=== PATIENT | male | born 1945 | race Caucasian/White ===

== ENCOUNTER 2017-08-04 11:39 | Inpatient (IN) | payer OTHER ==
[~2017-08-04] VITALS: Ht 167.6 cm; Wt 90.4 kg
[~2017-08-04 11:39] MED LIST: 8 HOUR PAIN RE650 MG PO; ASPI81CH PO; Aspir 8181 MG PO; BENAML20/5; BENAML20/5 PO; CALPHO600; CENTRUM SILVER1 EAC2 PO; CEPH500; CETI5 PO; CHOL10002 PO; CYAN1000 PO; CYCL10; FISH1000 PO; FURO40 PO; HYDACE5; MAGOXI400 PO; MULVITMINF; Multiple Vitam1 EAC1 PO; OXAP600; TELM40; TRAM50 PO; TYLOX
[2017-08-04] MEDS ORDERED: LISI5 PO (12:42)
[2017-08-04] MEDS ORDERED: QVAR (12:43)
[2017-08-04] MEDS ORDERED: HYDRA25 PO (12:44)
[2017-08-04] MEDS ORDERED: Coreg12.5 MG PO (12:44)
[2017-08-04 12:49] LABS: BASOPHILS ABSOLUTE AUTO 0.05 K/mm3 (0.00-0.23); BASOPHILS PERCENT AUTO 1 % (0-2); EOSINOPHILS ABSOLUTE AUTO 0.38 K/mm3 (0.00-0.68); EOSINOPHILS PERCENT AUTO 4 % (0-6); Hematocrit 40.3 % (37.0-53.0); Hemoglobin 13.1 g/dL (13.5-17.5); IMMATURE GRAN ABSOLUTE AUTO 0.03 K/mm3 (0.00-0.10); IMMATURE GRAN PERCENT AUTO 0 % (0-1); LYMPHOCYTES ABSOLUTE AUTO 2.99 K/mm3 (0.84-5.20); LYMPHOCYTES PERCENT AUTO 33 % (21-46); MONOCYTES ABSOLUTE AUTO 0.84 K/mm3 (0.16-1.47); MONOCYTES PERCENT AUTO 9 % (4-13); Mean Corpuscular HGB Conc 32.5 g/dL (31.5-36.5); Mean Corpuscular Volume 98 fL (80-100); Mean Platelet Volume 10.1 fL (9.1-12.4); NEUTROPHILS ABSOLUTE AUTO 4.86 K/mm3 (1.96-9.15); NEUTROPHILS PERCENT AUTO 53 % (41-73); Platelet Count 258 K/mm3 (150-400); RDW Coefficient Variation 14.2 % (11.7-14.2); RDW Standard Deviation 50.9 fL (35.1-46.3); White Blood Cell Count 9.15 K/mm3 (4.00-11.30)
[2017-08-04] MEDS ORDERED: ASPI81CH PO ×2 (13:00→13:15)
[2017-08-04 13:03] LABS: Alanine Aminotransfer (ALT/SGP 24 U/L (12-78); Albumin, Blood 3.6 g/dL (3.4-5.0); Alk Phos 92 U/L (50-136); Anion Gap 4 mmol/L (6-16); Aspartate Aminotrans (AST/SGOT 19 U/L (12-37); Bilirubin, Total 0.3 mg/dL (0.1-1.0); Blood Urea Nitrogen 28 mg/dL (8-24); Bun/Creatinine Ratio 31.5 (12.0-20.0); CO2, Blood 31 mmol/L (21-32); Calcium, Blood 9.4 mg/dL (8.5-10.1); Chloride, Blood 102 mmol/L (98-108); Creatinine, Blood 0.89 mg/dL (0.60-1.20); Globulin, Blood 3.6 g/dL (2.2-4.0); Glomerular Filtration Rate >60 (60-); Glucose, Blood 96 mg/dL (70-99); Potassium, Blood 4.4 mmol/L (3.5-5.5); Sodium, Blood 137 mmol/L (136-145); Total Protein, Blood 7.2 g/dL (6.4-8.2); Troponin I 0.204 ng/mL (0.000-0.040)
[2017-08-05 03:05] LABS: Alanine Aminotransfer (ALT/SGP 24 U/L (12-78); Albumin, Blood 3.5 g/dL (3.4-5.0); Albumin/Globulin Ratio 0.9 (0.8-1.8); Alk Phos 93 U/L (50-136); Anion Gap 4 mmol/L (6-16); Aspartate Aminotrans (AST/SGOT 17 U/L (12-37); Bilirubin, Total 0.3 mg/dL (0.1-1.0); Blood Urea Nitrogen 30 mg/dL (8-24); Bun/Creatinine Ratio 29.1 (12.0-20.0); CHOL/HDL RATIO 3.1; CO2, Blood 33 mmol/L (21-32); Calcium, Blood 9.1 mg/dL (8.5-10.1); Chloride, Blood 103 mmol/L (98-108); Cholesterol 157 mg/dL (50-200); Creatinine, Blood 1.03 mg/dL (0.60-1.20); Globulin, Blood 3.8 g/dL (2.2-4.0); Glomerular Filtration Rate >60 (60-); Glucose, Blood 120 mg/dL (70-99); HDL Cholesterol 50 mg/dL (>39); LDL/HDL RATIO 1.5; Low Density Lipoprotein Chol 76 mg/dL (0-110); Sodium, Blood 140 mmol/L (136-145); Total Protein, Blood 7.3 g/dL (6.4-8.2); Triglycerides 155 mg/dL (30-160); Very Low Density Lipoprot Chol 31 mg/dL (6-32)
[2017-08-06] MEDS ORDERED: ASPI325 PO (16:31)
[2017-08-06] MEDS ORDERED: CLOP75 PO (16:32)
[2017-08-06] MEDS ORDERED: NITR.4SL SL (16:33)
== END 2017-08-06 16:45 | disposition home or self-care (01) | DRG 247 ==
LOC: ER 11:39 → MEDS 11:40 → ER 13:52 → MEDS 13:52 → ER 18:44 → MEDS 18:44
PROVIDERS: Emergency Medicine; Family Medicine
PROC: 027034Z Dilation of Coronary Artery, One Artery with Drug-eluting Intraluminal Device, Percutaneous Approach (ICD-10-PCS; principal; 2017-08-06)
PROC: 4A023N7 Measurement of Cardiac Sampling and Pressure, Left Heart, Percutaneous Approach (ICD-10-PCS; 2017-08-06)
PROC: B2111ZZ Fluoroscopy of Multiple Coronary Arteries using Low Osmolar Contrast (ICD-10-PCS; 2017-08-06)
PROC: B2151ZZ Fluoroscopy of Left Heart using Low Osmolar Contrast (ICD-10-PCS; 2017-08-06)
DX: I25.110 Atherosclerotic heart disease of native coronary artery with unstable angina pectoris (principal); I11.0 Hypertensive heart disease with heart failure; J44.9 Chronic obstructive pulmonary disease, unspecified; I50.9 Heart failure, unspecified; Z87.891 Personal history of nicotine dependence; Z85.46 Personal history of malignant neoplasm of prostate; I25.2 Old myocardial infarction; Z86.718 Personal history of other venous thrombosis and embolism; Z79.02 Long term (current) use of antithrombotics/antiplatelets
CPT/HCPCS: 36415; 80053; 80061; 84484; 85025; 85347; 92978; 93005; 93010; 93454; 94640; 94760; 99152; 99153; 99284; 99285; C1725; C1753; C1769; C1874; C1894; C9600; G0378; J1644; J2250; J2405; J3010; J7030; Q9967

== ENCOUNTER 2020-04-09 13:34 | Emergency (ER) | payer OTHER ==
[~2020-04-09] VITALS: Ht 165.1 cm; Wt 99.8 kg
[~2020-04-09 13:34] MED LIST changes: +ASPI325 PO; +CLOP75 PO; +Coreg12.5 MG PO; +HYDRA25 PO; +LISI5 PO; +NITR.4SL SL; +QVAR
[2020-04-09 14:22] LABS: BASOPHILS ABSOLUTE AUTO 0.04 K/mm3 (0.00-0.23); BASOPHILS PERCENT AUTO 0 % (0-2); EOSINOPHILS ABSOLUTE AUTO 0.15 K/mm3 (0.00-0.68); EOSINOPHILS PERCENT AUTO 2 % (0-6); Hematocrit 36.2 % (37.0-53.0); IMMATURE GRAN ABSOLUTE AUTO 0.07 K/mm3 (0.00-0.10); IMMATURE GRAN PERCENT AUTO 1 % (0-1); LYMPHOCYTES ABSOLUTE AUTO 1.17 K/mm3 (0.84-5.20); LYMPHOCYTES PERCENT AUTO 12 % (21-46); MONOCYTES ABSOLUTE AUTO 0.78 K/mm3 (0.16-1.47); MONOCYTES PERCENT AUTO 8 % (4-13); Mean Corpuscular HGB 30.1 pg (26.0-34.0); Mean Corpuscular HGB Conc 30.4 g/dL (31.5-36.5); Mean Corpuscular Volume 99 fL (80-100); Mean Platelet Volume 10.1 fL (9.1-12.4); NEUTROPHILS PERCENT AUTO 77 % (41-73); Platelet Count 181 K/mm3 (150-400); RDW Coefficient Variation 14.8 % (11.7-14.2); RDW Standard Deviation 54.5 fL (35.1-46.3); Red Blood Cell Count 3.65 M/mm3 (4.30-5.90); White Blood Cell Count 9.51 K/mm3 (4.00-11.30)
[2020-04-09 14:40] LABS: Albumin, Blood 3.3 g/dL (3.4-5.0); Albumin/Globulin Ratio 0.9 (0.8-1.8); Bilirubin, Total 0.5 mg/dL (0.1-1.0); Bun/Creatinine Ratio 23.6 (12.0-20.0); Calcium, Blood 9.2 mg/dL (8.5-10.1); Creatinine, Blood 1.57 mg/dL (0.60-1.20); Globulin, Blood 3.7 g/dL (2.2-4.0); Potassium, Blood 4.8 mmol/L (3.5-5.5); Troponin I 0.063 ng/mL (0.000-0.040)
[2020-04-09] MEDS ORDERED: PANT40 PO (15:26)
[2020-04-09] MEDS ORDERED: ESCI10 PO (15:26)
[2020-04-09] MEDS ORDERED: ANORO ELLIPTA1 EAC1 INH (15:27)
[2020-04-09] MEDS ORDERED: XARELTO20 MG PO (15:28)
[2020-04-09] MEDS ORDERED: ALBU3IS INH (15:29)
[2020-04-09] MEDS ORDERED: Klor-Con 1010 MEQ PO (15:32)
[2020-04-09] MEDS ORDERED: FURO40 PO (15:32)
[2020-04-09] MEDS ORDERED: ATROVENT HFA12.9 GM INH (15:34)
== END 2020-04-09 17:17 | disposition home or self-care (01) ==
LOC: ER 13:34
PROVIDERS: Physician Assistant
DX: I26.99 Other pulmonary embolism without acute cor pulmonale (principal); I82.403 Acute embolism and thrombosis of unspecified deep veins of lower extremity, bilateral; C61 Malignant neoplasm of prostate; D72.819 Decreased white blood cell count, unspecified; I25.2 Old myocardial infarction; I25.10 Atherosclerotic heart disease of native coronary artery without angina pectoris; I11.0 Hypertensive heart disease with heart failure; I50.9 Heart failure, unspecified; J44.9 Chronic obstructive pulmonary disease, unspecified; Z79.01 Long term (current) use of anticoagulants; Z88.5 Allergy status to narcotic agent; Z88.8 Allergy status to other drugs, medicaments and biological substances; Z79.899 Other long term (current) drug therapy; Z79.82 Long term (current) use of aspirin
CPT/HCPCS: 36415; 71046; 71260; 80053; 84484; 85025; 93005; 93010; 96360; 99285-25; J7030; Q9967

== ENCOUNTER 2020-11-08 19:46 | Inpatient (IN) | payer OTHER ==
[~2020-11-08] VITALS: Ht 170.2 cm; Wt 107.8 kg
[~2020-11-08 19:46] MED LIST changes: +ALBU3IS INH; +ANORO ELLIPTA1 EAC1 INH; +ATROVENT HFA12.9 GM INH; +ESCI10 PO; +Klor-Con 1010 MEQ PO; +PANT40 PO; +XARELTO20 MG PO
[2020-11-08 20:15] LABS: BASOPHILS ABSOLUTE AUTO 0.03 K/mm3 (0.00-0.23); BASOPHILS PERCENT AUTO 0 % (0-2); EOSINOPHILS ABSOLUTE AUTO 0.04 K/mm3 (0.00-0.68); EOSINOPHILS PERCENT AUTO 1 % (0-6); Hematocrit 31.2 % (37.0-53.0); Hemoglobin 9.4 g/dL (13.5-17.5); IMMATURE GRAN ABSOLUTE AUTO 0.02 K/mm3 (0.00-0.10); IMMATURE GRAN PERCENT AUTO 0 % (0-1); LYMPHOCYTES ABSOLUTE AUTO 1.65 K/mm3 (0.84-5.20); LYMPHOCYTES PERCENT AUTO 23 % (21-46); MONOCYTES ABSOLUTE AUTO 0.82 K/mm3 (0.16-1.47); MONOCYTES PERCENT AUTO 11 % (4-13); Mean Corpuscular HGB Conc 30.1 g/dL (31.5-36.5); Mean Corpuscular Volume 103 fL (80-100); Mean Platelet Volume 9.5 fL (9.1-12.4); NEUTROPHILS ABSOLUTE AUTO 4.62 K/mm3 (1.96-9.15); NEUTROPHILS PERCENT AUTO 64 % (41-73); Platelet Count 216 K/mm3 (150-400); RDW Coefficient Variation 14.5 % (11.7-14.2); RDW Standard Deviation 53.9 fL (35.1-46.3); Red Blood Cell Count 3.03 M/mm3 (4.30-5.90); White Blood Cell Count 7.18 K/mm3 (4.00-11.30)
[2020-11-08] MEDS ORDERED: FAMO40 PO (20:23)
[2020-11-08] MEDS ORDERED: ENTRESTO 49 MG1 EACH PO (20:25)
[2020-11-08] MEDS ORDERED: XARELTO20 MG PO (20:25)
[2020-11-08] MEDS ORDERED: ONDA4ODT MM (20:27)
[2020-11-08 20:35] LABS: Albumin, Blood 3.1 g/dL (3.4-5.0); Albumin/Globulin Ratio 0.8 (0.8-1.8); Bilirubin, Total 0.2 mg/dL (0.1-1.0); Bun/Creatinine Ratio 25.3 (12.0-20.0); Calcium, Blood 9.2 mg/dL (8.5-10.1); Creatinine, Blood 1.78 mg/dL (0.60-1.20); Potassium, Blood 4.8 mmol/L (3.5-5.5); Total Protein, Blood 7.1 g/dL (6.4-8.2); Troponin I 0.092 ng/mL (0.000-0.040)
[2020-11-08] MEDS ORDERED: ENTRESTO 49 MG1 EAC2 PO (20:40)
[2020-11-08 23:17] LABS: International Normalized Ratio 1.32
--- NOTE | 2020-11-09 03:00 | NUR ---
PT ADMITTED TO ICU FOR HYPOTENSION, POSS NSTEMI. PT IS ALERT, ANSWERS QUESTIONS APPROPRIATELY, DEFERS TO FOR DETAILS, WHO IS PRESENT AND HELPED W ADMIT ASSESSMENT. PT CONT W HR 40'S, SINUS RHYTHM, NO ECTOPY. PT BP CONT LOW 80'S. HEPARIN INFUSING. PER DR WEBB ADMIT NOTE, UNABLE TO DIURESE D/T HYPOTENSION, PT REC'D 2L IN ER. WILL CONFIRM TO CONTINUE IVF. CALL LIGHT IN REACH. PHONE NUMBERS PROVIDED TO .
[2020-11-09 04:01] LABS: Bun/Creatinine Ratio 26.2 (12.0-20.0); Calcium, Blood 8.6 mg/dL (8.5-10.1); Creatinine, Blood 1.91 mg/dL (0.60-1.20); Potassium, Blood 5.5 mmol/L (3.5-5.5)
--- NOTE | 2020-11-09 06:30 | NUR ---
PT HAS APPEARED RESTFUL THROUGH THE NOC, CONT IN HIGH FOWLERS POSTION, AND LOOSENS OXYMIZER AROUND HIS NECK- "FEELS TOO TIGHT". CONT TO DENY SOB OR CHEST DISCOMFORT OR NAUSEA. HR CONT 40'S, SBP SLOWLY UP TO 90. SPOKE W DR WEBB RE IVF, HE WOULD LIKE THEM STARTED. PT ANXIOUS TO MEET W CARDIOLOGY. PT RELATES THAT ENTRESTO DOSE WAS DOUBLED RECENTLY. CALL LIGHT CONT IN REACH.
[2020-11-09 09:35] LABS: CHOL/HDL RATIO 2.7; Cholesterol 125 mg/dL (50-200); HDL Cholesterol 47 mg/dL (>39); LDL/HDL RATIO 1.3; Low Density Lipoprotein Chol 63 mg/dL (0-110); Triglycerides 76 mg/dL (30-160); Uric Acid, Blood 7.6 mg/dL (3.5-7.2); Very Low Density Lipoprot Chol 15 mg/dL (6-32)
--- NOTE | 2020-11-09 10:00 | NUR ---
Assumed care of pt at 0700 with Regi GUILLERMO. Pt A&O x 4. Pleasant and cooperative with care. Answers questions. Follows commands. Verbalizes needs. Pt denies chest pain, light headedness, dizziness. When asked if he is feeling short of breath, he states "yes". When asked if this shortness of breath is worse than usual, he states "no". Pt asked to sit up in recliner. Educated that this is not a safe option until HR and BP improved. Pt agreeable. Asked pt if he sleeps in a recliner at home, pt states "yes". SBP 80s, 90s. Sometimes difficult to obtain due to irregular heart rhythm. Additionally, he is tremulous, which he states is new. BP confirmed with doppler, SBP 90s. Pt's HR is 45-55 at rest. Asked pt if he knows what his pulse normally is, he states "I don't know". When sure that BP was stable, pt assisted to stand and void in urinal. Dr Lopez ordered bladder scan, which revealed approx 300 mL. Pt able to void 175 mL. Assisted to sit in recliner afterwards. Pt weak, but tolerated activity well. Pt's spouse is concerned about pt and wants to visit now, despite visiting hours. Spouse updated by hospitalist, Dr Lopez. Plan to update family as new results are obtained. Update given by this RN, to pt's daughter who called unit. She states she reviewed pt's labs on patient portal and has questions on them. Discussed elevated troponin, that pt is receiving heparin, and that plan is for pt to obtain echocardiogram and cardiology will be consulting on pt. Dr Dailey in to see pt. Echocardiogram has not yet been obtained. Plan to reassess pt when echo is done and maintain NPO status in the mean time. Discussed pt's HR at rest and with activity (increases to 70s-90s). Provider reviews rhythm strips and states pt may be in 2:1 block. Will continue to closely reassess.
[2020-11-09 12:50] LABS: Bun/Creatinine Ratio 26.8 (12.0-20.0); Calcium, Blood 8.5 mg/dL (8.5-10.1); Creatinine, Blood 1.79 mg/dL (0.60-1.20); Potassium, Blood 5.3 mmol/L (3.5-5.5)
--- NOTE | 2020-11-09 15:30 | NUR ---
Call placed to Dr Lopez regarding pt's blood pressure. Low per automatic NIBP machine. Unable to hear manual BP with stethoscope. SBP 90 per doppler. Order given for 500 mL bolus. If this is not effective, plan for dopamine drip.
--- NOTE | 2020-11-09 16:00 | NUR ---
Pt's BP responded well to fluid bolus. Will continue to reassess.
--- NOTE | 2020-11-09 17:34 | NUR ---
SUMMARY Pt has been up in recliner for majority of shift. Pt A&O x 2. Answers questions. Follows commands. Verbalizes needs. Pleasant and cooperative with care. Since fluid bolus, pt's HR has been averaging 70s-80s at rest, but still occasionally drops down to 50s. BP stable with MAP greater than 60. Pt has not had any chest pain, light headedness, dizziness, or unusual shortness of breath this shift. Pt currently on 6 LPM NC to maintain SpO2 90% or greater. Pt visiting with spouse. Will continue to closely monitor until care handoff and bedside report with oncoming RN.
--- NOTE | 2020-11-09 19:15 | NUR ---
ASSUMED CARE AT 1900 PT SITTING UP IN CHAIR WATCHING TV. PT IS ALERT/ORIENTED X4 BUT SLOW TO RESPOND AND LETHARGIC; PT KEEPS HIS EYES CLOSED WHILE TALKING. SEE NEXT NOTE ABOUT INCREASE IN O2 DEMANDS. AFEBRILE. HR 90'S. SBP 90-100, MAP >65. HEPARIN INFUSING AT 11 UNITS/KG/HR. PLAN FOR PT TO BE NPO AFTER MIDNIGHT. PT ABLE TO USE BSC WITH ONE PERSON ASSIST. PT CALLED FOR UPDATE, PHONE CALL WAS THAN TRANSFERED TO AND PT TALKED TO . SEE SHIFT ASSESSMENT FOR FULL ASSESSMENT.
[2020-11-09 19:37] LABS: Influenza A, PCR NEGATIVE (NEGATIVE); Influenza B, PCR NEGATIVE (NEGATIVE); Resp Syncytial Virus, PCR NEGATIVE (NEGATIVE); SARS-Cov-2 (COVID-19) PCR, MMC NEGATIVE (NEGATIVE)
--- NOTE | 2020-11-09 20:34 | NUR ---
CALLED DR CLEANING PT INCREASE IN O2 REQUIREMENTS, NOW ON 12L HIGH FLOW NC, AUSCULTATION OF LUNGS CRACKLES T/O. NEW INSTRUCTION TO HOLD NS INFUSING AT 150ML/HR, AND TO PROVIDED CPAP IN NEEDED.
[2020-11-10 03:28] LABS: BASOPHILS ABSOLUTE AUTO 0.05 K/mm3 (0.00-0.23); BASOPHILS PERCENT AUTO 1 % (0-2); EOSINOPHILS ABSOLUTE AUTO 0.05 K/mm3 (0.00-0.68); EOSINOPHILS PERCENT AUTO 1 % (0-6); Hematocrit 29.3 % (37.0-53.0); Hemoglobin 8.7 g/dL (13.5-17.5); IMMATURE GRAN ABSOLUTE AUTO 0.08 K/mm3 (0.00-0.10); IMMATURE GRAN PERCENT AUTO 1 % (0-1); LYMPHOCYTES ABSOLUTE AUTO 1.95 K/mm3 (0.84-5.20); LYMPHOCYTES PERCENT AUTO 25 % (21-46); MONOCYTES ABSOLUTE AUTO 0.88 K/mm3 (0.16-1.47); MONOCYTES PERCENT AUTO 11 % (4-13); Mean Corpuscular HGB 30.7 pg (26.0-34.0); Mean Corpuscular HGB Conc 29.7 g/dL (31.5-36.5); Mean Corpuscular Volume 104 fL (80-100); Mean Platelet Volume 10.2 fL (9.1-12.4); NEUTROPHILS ABSOLUTE AUTO 4.75 K/mm3 (1.96-9.15); NEUTROPHILS PERCENT AUTO 61 % (41-73); Platelet Count 172 K/mm3 (150-400); RDW Coefficient Variation 14.2 % (11.7-14.2); RDW Standard Deviation 53.9 fL (35.1-46.3); Red Blood Cell Count 2.83 M/mm3 (4.30-5.90); White Blood Cell Count 7.76 K/mm3 (4.00-11.30)
[2020-11-10 03:45] LABS: Albumin/Globulin Ratio 0.8 (0.8-1.8); Bilirubin, Total 0.3 mg/dL (0.1-1.0); Bun/Creatinine Ratio 31.9 (12.0-20.0); Calcium, Blood 8.9 mg/dL (8.5-10.1); Creatinine, Blood 1.35 mg/dL (0.60-1.20); Globulin, Blood 3.6 g/dL (2.2-4.0); Potassium, Blood 5.1 mmol/L (3.5-5.5); Total Protein, Blood 6.6 g/dL (6.4-8.2)
--- NOTE | 2020-11-10 06:30 | NUR ---
END OF SHIFT SUMMARY PT DID NOT SLEEP VERY MUCH, LITTLE 30MIN NAPS T/O SHIFT. PT ALERT/ORIENTED X4 BUT VERY TIRED AND IRRITABLE AT TIMES. AFEBRILE. SPO2 >90% ON 10L HIGH FLOW NC, MILD CRACKLES T/O. HR IRREGULAR 60-90'S. SBP 100-150; NO C/O CHEST PAIN, DYSPNEA, OR NAUSEA. URINE OUTPUT 320ML, OUTPUT YELLOW, AND CLEAR. PT NPO SINCE MIDNIGHT. HEPARIN INFUSING AT 12UNITS/KG/HR. WILL REPORT TO AM RN WHEN AVAILABLE.
--- NOTE | 2020-11-10 07:15 | NUR ---
Assumed care of pt at 0700. Bedside report received from Paz ESPARZA. Pt A&O x 4. Answers questions. Follows commands. Verbalizes needs. Pleasant and cooperative with care. Up in room to use urinal to void. Tolerating activity well. Pt NPO until cardiology consults on patient to provide additional plan of care. Pt on 10 LPM with high flow NC. SpO2 90% or greater. Lungs diminished t/o. SB-SR per monitor. BP stable. Pt sitting up in recliner at this time. Denies needs. Call light in reach.
--- NOTE | 2020-11-10 09:40 | NUR ---
Dr Lopez in to see pt earlier this morning. Discussed BP, HR, and plan for cardiology to see patient. Discussed pt's renal function and increase in oxygen requirements. Notified that IV fluids were DC'd overnight to to crackles in lungs in addition to increased O2 requirements. Plan to evaluate need for diuresis when pt is done with coronary angiogram. Dr Dailey in to see patient. Placed call to pt's to obtain informed consent, witnessed by BEHAVIORAL SERVICES TECH. Plan for pt to go for angiogram today. Pt verbalizes understanding of plan.
--- NOTE | 2020-11-10 11:30 | NUR ---
Pt departed to test lab technician
[2020-11-10 14:07] LABS: Source, Urine Catheter
[2020-11-10 14:10] LABS: Bilirubin, Urine Neg (Neg); Blood, Urine Neg (Neg); Glucose Qualitative, Urine Neg (Neg); Ketones, Urine Neg (Neg); Leukocyte Esterase, Urine Neg (Neg); Nitrite, Urine Neg (Neg); Protein, Urine Neg (Neg); Urobilinogen, Urine NORM (Normal)
[2020-11-10 14:17] LABS: Appearance, Urine Clear (Clear); Color, Urine Pale Yellow (P-Yellow)
--- NOTE | 2020-11-10 15:37 | NUR ---
Potential for pt to transfer to another facility for higher level of care related to angiogram findings. Dr Dailey has updated family. Pt sitting up in recliner, visiting with spouse at bedside. Currently on 9 LPM NC to maintain SpO2 90% or greater. Lasix given in medical lab assistant. [place] catheter inserted due as pt was having difficulty voiding.
--- NOTE | 2020-11-10 16:00 | NUR ---
ASSUMED CARE OF PATIENT PATIENT ALERT AND ORIENTED X 4, AFEBRILE. PATIENT DENIES PAIN. PATIENT 1 PA. PATIENT SATTING 90% AND GREATER ON 8 L HF NC. PATIENT IN SR WITH BBB, HR 70S TO 90S. SBP 90S TO 120S. ABDOMEN FIRM, MODERATELY DISTENDED WITH HYPERACTIVE BS NOTED. MCMANUS IN PLACE DRAINING LIGHT YELLOW URINE. TR BAND TO R RADIAL SITE. NO AIR HAS BEEN DEFLATED SINCE RIPSAWYER PER RN REPORT. SOFT LUMP TO R SIDE OF NECK. HEPARIN INFUSING AT 13 UNITS/ KG/ HOUR. WAITING FOR BED ASSIGNMENT FROM [facility].
--- NOTE | 2020-11-10 16:10 | NUR ---
Pt remains on PS 7/5, FiO2 35%. RR 28-32. Tidal volumes 350-450 mL. Pt on precedex at 0.7 mcg/kg/hr and fentanyl at 50 mcg/hr. Pt alert. Tolerating ventilator well. Report given to RN to assume care, Victoria.
--- NOTE | 2020-11-10 16:12 | NUR ---
No changes since last note. Report given to RN to assume care, Victoria.
--- NOTE | 2020-11-10 16:40 | NUR ---
2 CC AIR DEFLATED FROM TR BAND. NO BLEEDING, BRUISING, OR HEMATOMA NOTED AT THIS TIME.
--- NOTE | 2020-11-10 16:53 | NUR ---
2 CC AIR DEFLATED FROM TR BAND. NO BLEEDING, BRUISING, OR HEMATOMA NOTED AT THIS TIME.
--- NOTE | 2020-11-10 17:00 | NUR ---
DR. MORRIS INFORMED OF SOFT LUMP ON R SIDE OF NECK. STATES THAT HE IS NOT CONCERNED.
--- NOTE | 2020-11-10 17:04 | NUR ---
2 CC AIR DEFLATED FROM TR BAND. NO BLEEDING, BRUISING, HEMATOMA NOTED AT THIS TIME.
--- NOTE | 2020-11-10 17:30 | NUR ---
TR BAND NOW COMPLETELY DEFLATED. TR BAND AND ARMBOARD REMAIN IN PLACE. NO SIGNS OF BLEEDING, BRUISING, OR HEMATOMA AT THIS TIME.
--- NOTE | 2020-11-10 17:55 | NUR ---
SHIFT SUMMARY PATIENT VITALS REMAINED STABLE. R TR BAND FULLY DEFLATED WITH NO SIGNS OF BLEEDING, BRUISING, OR HEMATOMA. REPORT GIVEN TO BILL AT [phone] [facility]. PATIENT WILL BE GOING TO ROOM 4412. FOLLOWED TRANSPORT OUT. ALL BELONGINGS SENT WITH PATIENT.
== END 2020-11-10 17:53 | disposition short-term general hospital (02) | DRG 280 ==
LOC: ER 19:46 → ICUW 23:22 → ICUE 11-09 00:59 → ICUW 11-09 00:59 → ER 11-09 00:59 → ICUE 11-09 01:10 → ICUW 11-09 01:10 → ICUE 11-10 17:53
PROVIDERS: Internal Medicine; Internal Medicine Cardiovascular Disease; Physician Assistant; Student in an Organized Health Care Education/Training Program; ADMIT Internal Medicine
PROC: 4A023N7 Measurement of Cardiac Sampling and Pressure, Left Heart, Percutaneous Approach (ICD-10-PCS; principal; 2020-11-10)
PROC: B2111ZZ Fluoroscopy of Multiple Coronary Arteries using Low Osmolar Contrast (ICD-10-PCS; 2020-11-10)
DX: I21.4 Non-ST elevation (NSTEMI) myocardial infarction (principal); J96.21 Acute and chronic respiratory failure with hypoxia; I50.23 Acute on chronic systolic (congestive) heart failure; N17.9 Acute kidney failure, unspecified; C91.41 Hairy cell leukemia, in remission; I25.10 Atherosclerotic heart disease of native coronary artery without angina pectoris; I34.0 Nonrheumatic mitral (valve) insufficiency; Z20.822 Contact with and (suspected) exposure to COVID-19; E78.5 Hyperlipidemia, unspecified; E66.9 Obesity, unspecified; I95.9 Hypotension, unspecified; F03.90 Unspecified dementia, unspecified severity, without behavioral disturbance, psychotic disturbance, mood disturbance, and anxiety; Z95.5 Presence of coronary angioplasty implant and graft; Z85.46 Personal history of malignant neoplasm of prostate; Z86.711 Personal history of pulmonary embolism; G89.29 Other chronic pain; M54.9 Dorsalgia, unspecified; Z86.718 Personal history of other venous thrombosis and embolism; Z90.79 Acquired absence of other genital organ(s); Z98.890 Other specified postprocedural states; Z96.653 Presence of artificial knee joint, bilateral; Z87.891 Personal history of nicotine dependence; Z88.5 Allergy status to narcotic agent; Z88.1 Allergy status to other antibiotic agents; Z79.899 Other long term (current) drug therapy; I11.0 Hypertensive heart disease with heart failure
CPT/HCPCS: 0241U; 36415; 71045; 76770; 76937; 80048; 80053; 80061; 81003; 82947; 84443; 84484; 84550; 85025; 85347; 85610; 85730; 93005; 93010; 93454; 94640; 94760; 96361; 96365; 96375; 96376; 99152; 99153; 99285-25; A9270; A9270-GY; C1769; C1894; C8929; J1644; J1940; J2250; J2405; J3010; J7030; J7050; Q9957; Q9967

== ENCOUNTER 2020-12-19 17:43 | Inpatient (IN) | payer MEDICARE, OTHER ==
[~2020-12-19] VITALS: Ht 167.6 cm; Wt 83.5 kg
[~2020-12-19 17:43] MED LIST changes: +ENTRESTO 49 MG1 EAC2 PO; +ENTRESTO 49 MG1 EACH PO; +FAMO40 PO; +ONDA4ODT MM
[2020-12-19] MEDS ORDERED: CLOP75 PO (18:36)
[2020-12-19] MEDS ORDERED: ENTRESTO 24 MG1 EACH PO ×2 (18:36→20:39)
[2020-12-19 18:47] LABS: PCO2 Arterial 91.9 mmHg (35-45); PO2 Arterial 74.2 mmHg (80-100); pH Blood Arterial 7.21 (7.35-7.45)
[2020-12-19 19:09] LABS: BASOPHILS ABSOLUTE AUTO 0.04 K/mm3 (0.00-0.23); BASOPHILS PERCENT AUTO 1 % (0-2); EOSINOPHILS ABSOLUTE AUTO 0.04 K/mm3 (0.00-0.68); EOSINOPHILS PERCENT AUTO 1 % (0-6); Hematocrit 31.9 % (37.0-53.0); Hemoglobin 9.8 g/dL (13.5-17.5); IMMATURE GRAN ABSOLUTE AUTO 0.04 K/mm3 (0.00-0.10); IMMATURE GRAN PERCENT AUTO 1 % (0-1); LYMPHOCYTES ABSOLUTE AUTO 1.42 K/mm3 (0.84-5.20); LYMPHOCYTES PERCENT AUTO 18 % (21-46); MONOCYTES ABSOLUTE AUTO 0.63 K/mm3 (0.16-1.47); MONOCYTES PERCENT AUTO 8 % (4-13); Mean Corpuscular HGB 31.1 pg (26.0-34.0); Mean Corpuscular HGB Conc 30.7 g/dL (31.5-36.5); Mean Corpuscular Volume 101 fL (80-100); Mean Platelet Volume 9.8 fL (9.1-12.4); NEUTROPHILS ABSOLUTE AUTO 5.58 K/mm3 (1.96-9.15); NEUTROPHILS PERCENT AUTO 72 % (41-73); Platelet Count 219 K/mm3 (150-400); RDW Coefficient Variation 14.9 % (11.7-14.2); RDW Standard Deviation 55.4 fL (35.1-46.3); Red Blood Cell Count 3.15 M/mm3 (4.30-5.90); White Blood Cell Count 7.75 K/mm3 (4.00-11.30)
[2020-12-19 19:31] LABS: Alanine Aminotransfer (ALT/SGP 19 U/L (12-78); Albumin, Blood 3.1 g/dL (3.4-5.0); Albumin/Globulin Ratio 0.7 (0.8-1.8); Alk Phos 90 U/L (50-136); Anion Gap 0 mmol/L (6-16); Aspartate Aminotrans (AST/SGOT 20 U/L (12-37); Bilirubin, Total 0.3 mg/dL (0.1-1.0); Blood Urea Nitrogen 33 mg/dL (8-24); Bun/Creatinine Ratio 27.5 (12.0-20.0); CO2, Blood 36 mmol/L (21-32); Calcium, Blood 9.2 mg/dL (8.5-10.1); Chloride, Blood 101 mmol/L (98-108); Globulin, Blood 4.5 g/dL (2.2-4.0); Glomerular Filtration Rate >60 (60-); Glucose, Blood 134 mg/dL (70-99); Potassium, Blood 4.8 mmol/L (3.5-5.5); Sodium, Blood 137 mmol/L (136-145); Total Protein, Blood 7.6 g/dL (6.4-8.2)
[2020-12-19] MEDS ORDERED: FEROSUL325 M1 PO (20:37)
[2020-12-19] MEDS ORDERED: CARVEDILOL6.25 MG PO (20:38)
[2020-12-19] MEDS ORDERED: ATOR40TA PO (20:39)
[2020-12-19] MEDS ORDERED: IPRAT-ALBUT 0.5-3 ML NEB (20:40)
[2020-12-19 20:44] LABS: PCO2 Arterial 88.6 mmHg (35-45); PO2 Arterial 65.9 mmHg (80-100); pH Blood Arterial 7.23 (7.35-7.45)
[2020-12-19] MEDS ORDERED: Ventolin/Prove6.7 GM INH (22:13)
[2020-12-19 23:12] LABS: International Normalized Ratio 1.02
[2020-12-20 05:25] LABS: PCO2 Arterial 70.5 mmHg (35-45); PO2 Arterial 56.2 mmHg (80-100); pH Blood Arterial 7.29 (7.35-7.45)
[2020-12-20 07:12] LABS: BASOPHILS ABSOLUTE AUTO 0.04 K/mm3 (0.00-0.23); BASOPHILS PERCENT AUTO 1 % (0-2); EOSINOPHILS ABSOLUTE AUTO 0.14 K/mm3 (0.00-0.68); EOSINOPHILS PERCENT AUTO 2 % (0-6); Hematocrit 30.5 % (37.0-53.0); Hemoglobin 9.2 g/dL (13.5-17.5); IMMATURE GRAN ABSOLUTE AUTO 0.04 K/mm3 (0.00-0.10); IMMATURE GRAN PERCENT AUTO 1 % (0-1); LYMPHOCYTES ABSOLUTE AUTO 1.45 K/mm3 (0.84-5.20); LYMPHOCYTES PERCENT AUTO 20 % (21-46); MONOCYTES ABSOLUTE AUTO 0.78 K/mm3 (0.16-1.47); MONOCYTES PERCENT AUTO 11 % (4-13); Mean Corpuscular HGB 30.2 pg (26.0-34.0); Mean Corpuscular HGB Conc 30.2 g/dL (31.5-36.5); Mean Corpuscular Volume 100 fL (80-100); Mean Platelet Volume 10.1 fL (9.1-12.4); NEUTROPHILS ABSOLUTE AUTO 4.67 K/mm3 (1.96-9.15); NEUTROPHILS PERCENT AUTO 65 % (41-73); Platelet Count 200 K/mm3 (150-400); RDW Coefficient Variation 15.2 % (11.7-14.2); RDW Standard Deviation 55.6 fL (35.1-46.3); Red Blood Cell Count 3.05 M/mm3 (4.30-5.90); White Blood Cell Count 7.12 K/mm3 (4.00-11.30)
--- NOTE | 2020-12-20 07:26 | NUR ---
SHIFT SUMMARY PT TOLERATES BIPAP WELL, MENTATION IMPROVED FROM REPORTED AMS FROM ER. PT ALERT AND ABLE TO FOLLOW INSTRUCTIONS. PT DESATS TO 86-88% ON RA WHEN TAKEN OFF BIPAP, BREATHES SHALLOWLY, TAKES DEEP BREATHS AND RAISES SATS WHEN REMINDED TO BREATHE DEEPLY ON 1 L VIA NC. PT HAD EPISODE OF NAUSEA/DRY HEAVING FOLLOWING SIP OF WATER OFF BIPAP. THIS RN INSERTED 2ND PERIPHERAL IN R FOREARM AND ADMIN ZOFRAN PER ORDERS. PT DENIED ANY FURTHER NAUSEA, NO SUBSEQUENT EPISODES OF GAGGING/VOMITING. PT'S DAUGHTER EMILY CALLED REQUESTING UPDATE, DEEPAK PT'S HAD GIVEN PERMISSION FOR EMILY TO BE UPDATED, UPDATE PROVIDED. PT ABLE TO USE URINAL AT BEDSIDE WITH ASSIST. PT NEEDED TO BE REMINDED NOT TO USE R ARM TO LIFT HIMSELF OUT OF BED DUE TO RADIAL SITE POST-ANGIO. PT HR HAS VARIED INTO LOW 40'S TO 80'S SINUS.
[2020-12-20 07:29] LABS: Albumin/Globulin Ratio 0.7 (0.8-1.8); Bilirubin, Total 0.3 mg/dL (0.1-1.0); Bun/Creatinine Ratio 27.7 (12.0-20.0); Creatinine, Blood 1.41 mg/dL (0.60-1.20); Globulin, Blood 4.1 g/dL (2.2-4.0); Potassium, Blood 4.5 mmol/L (3.5-5.5); Total Protein, Blood 7.1 g/dL (6.4-8.2)
--- NOTE | 2020-12-20 14:28 | NUR ---
Spiritual care visit conducted. Patient is sitting on a chair and alert. Patient's spouse, Carmen is bedside. She tells me about the events that led to patient's hospitalization and what an emotional roller coaster ride the patient's medical issues have caused for her. They also share about their Zoroastrian Religion beliefs (they attend [facility]). I provide therapeutic listening and prayer. Patient responds well and shows sign of being encouraged in their whit.
--- NOTE | 2020-12-20 19:54 | NUR ---
PT'S HEPARIN DRIP TITRATED PER MAR; PT HAD HOME O2 EVALUATION, WIRELESS MANAGER FROM [employer] VISITED PT ABOUT HOME O2 NEEDS; HEPARIN DRIP D/C'ED AT 1247 PER MAR; DISCHARGE ORDERS PLACED; PT'S AT BEDSIDE; OT EVALUATED PT; PHYSICAL THERAPY EVALUATED PATIENT; PT RECEIVED DISCHARGE TEACHING AND HAD IVS REMOVED AT 1616; PT LEFT UNIT AT 1645 VIA WHEELCHAIR WITH PERSONAL EFFECTS, NO TELEMETRY, AND NO IV THERAPY, AND ON 1LNC HOME O2 VIA CONCENTRATOR WITH , TRANSPORTED BY TECH; PT AND BOTH DENY ADDITIONAL CONCERNS AT THIS TIME
== END 2020-12-20 17:00 | disposition home health service (06) | DRG 70 ==
LOC: ER 17:43 → PCU 17:44
PROVIDERS: Emergency Medicine; ADMIT Internal Medicine
PROC: 5A09357 Assistance with Respiratory Ventilation, Less than 24 Consecutive Hours, Continuous Positive Airway Pressure (ICD-10-PCS; principal; 2020-12-20)
DX: G93.41 Metabolic encephalopathy (principal); J96.21 Acute and chronic respiratory failure with hypoxia; I50.22 Chronic systolic (congestive) heart failure; I25.10 Atherosclerotic heart disease of native coronary artery without angina pectoris; I11.0 Hypertensive heart disease with heart failure; J44.9 Chronic obstructive pulmonary disease, unspecified; Z99.81 Dependence on supplemental oxygen; Z95.5 Presence of coronary angioplasty implant and graft; Z88.1 Allergy status to other antibiotic agents; Z88.5 Allergy status to narcotic agent; Z88.8 Allergy status to other drugs, medicaments and biological substances; Z79.899 Other long term (current) drug therapy; I25.2 Old myocardial infarction; Z85.46 Personal history of malignant neoplasm of prostate; Z86.718 Personal history of other venous thrombosis and embolism; Z90.79 Acquired absence of other genital organ(s); Z98.890 Other specified postprocedural states; Z87.891 Personal history of nicotine dependence
CPT/HCPCS: 36415; 36600; 70450; 71045; 80053; 82803; 85025; 85610; 85730; 93005; 93010; 94640; 94660; 94762; 96374; 96375; 97162; 97166; 97530; 99285-25; A9270; C9113; G0378; J1644; J2405

== ENCOUNTER → 2021-09-19 | Outpatient (CLI) | payer OTHER ==
[~2021-09-19] MED LIST changes: +ATOR40TA PO; +CARVEDILOL6.25 MG PO; +ENTRESTO 24 MG1 EACH PO; +FEROSUL325 M1 PO; +IPRAT-ALBUT 0.5-3 ML NEB; +Ventolin/Prove6.7 GM INH
== END | disposition home or self-care (01) ==
LOC: PLD 08:16 → LAB SHORT 08:16
DX: D36.10 Benign neoplasm of peripheral nerves and autonomic nervous system, unspecified (principal)
CPT/HCPCS: 88305

== ENCOUNTER → 2023-04-03 | Outpatient (CLI) | payer OTHER ==
[2023-04-03 11:16] LABS: BASOPHILS ABSOLUTE AUTO 0.04 K/mm3 (0.00-0.23); BASOPHILS PERCENT AUTO 1 % (0-2); EOSINOPHILS PERCENT AUTO 4 % (0-6); Hematocrit 27.7 % (37.0-53.0); Hemoglobin 8.8 g/dL (13.5-17.5); IMMATURE GRAN ABSOLUTE AUTO 0.03 K/mm3 (0.00-0.10); IMMATURE GRAN PERCENT AUTO 0 % (0-1); LYMPHOCYTES ABSOLUTE AUTO 1.92 K/mm3 (0.84-5.20); LYMPHOCYTES PERCENT AUTO 28 % (21-46); MONOCYTES ABSOLUTE AUTO 0.55 K/mm3 (0.16-1.47); MONOCYTES PERCENT AUTO 8 % (4-13); Mean Corpuscular HGB 31.8 pg (26.0-34.0); Mean Corpuscular HGB Conc 31.8 g/dL (31.5-36.5); Mean Corpuscular Volume 100 fL (80-100); Mean Platelet Volume 11.1 fL (9.1-12.4); NEUTROPHILS ABSOLUTE AUTO 3.98 K/mm3 (1.96-9.15); NEUTROPHILS PERCENT AUTO 58 % (41-73); Platelet Count 245 K/mm3 (150-400); RDW Coefficient Variation 14.2 % (11.7-14.2); Red Blood Cell Count 2.77 M/mm3 (4.30-5.90); White Blood Cell Count 6.82 K/mm3 (4.00-11.30)
[2023-04-03 11:26] LABS: Albumin, Blood 3.2 g/dL (3.4-5.0); Albumin/Globulin Ratio 0.8 (0.8-1.8); Bilirubin, Total 0.2 mg/dL (0.1-1.0); Bun/Creatinine Ratio 32.9 (12.0-20.0); Creatinine, Blood 1.52 mg/dL (0.60-1.20); Potassium, Blood 4.9 mmol/L (3.5-5.5); Total Protein, Blood 7.2 g/dL (6.4-8.2)
== END | disposition home or self-care (01) ==
LOC: LAB 10:05 → LAB SHORT 10:05
PROVIDERS: Nurse Practitioner
DX: N17.9 Acute kidney failure, unspecified (principal); D64.9 Anemia, unspecified
CPT/HCPCS: 80053; 85025

== ENCOUNTER 2023-09-04 00:52 | Day surgery (SDC) | payer OTHER ==
[2023-09-04] VITALS (7 sets, daily range): BP systolic 106–136; BP diastolic 63–92
[~2023-09-04 00:52] MED LIST changes: +ONDA4 PO
[2023-09-04] MEDS ORDERED: NS 250 ML IV SCH (07:00)
[2023-09-04] MEDS ORDERED: HYDROCODONE-AC473 ML PO (15:57)
[2023-09-04] MEDS ORDERED: FLUTICASONE-SA1 EAC2 INH (15:58)
[2023-09-04] MEDS ORDERED: ZYRTEC10 M2 PO (15:58)
[2023-09-04] MEDS ORDERED: DIPH25 PO (15:59)
== END 2023-09-04 17:30 | disposition home or self-care (01) ==
LOC: ATC 00:52
DX: C34.12 Malignant neoplasm of upper lobe, left bronchus or lung (principal); I10 Essential (primary) hypertension; I25.10 Atherosclerotic heart disease of native coronary artery without angina pectoris; I21.4 Non-ST elevation (NSTEMI) myocardial infarction; Z88.5 Allergy status to narcotic agent; Z88.8 Allergy status to other drugs, medicaments and biological substances
CPT/HCPCS: 36415; 36430; 86850; 86900; 86901; 86923; J7050; P9016

== ENCOUNTER → 2023-10-06 | Outpatient (CLI) | payer OTHER ==
[~2023-10-06] MED LIST changes: +DIPH25 PO; +FLUTICASONE-SA1 EAC2 INH; +HYDROCODONE-AC473 ML PO; +ZYRTEC10 M2 PO
== END ==
LOC: LAB 16:45 → LAB SHORT 16:45
DX: L72.3 Sebaceous cyst (principal)
CPT/HCPCS: 87070; 87075; 87076; 87185; 87205

== ENCOUNTER 2023-11-15 20:02 | Emergency (ER) | payer OTHER ==
[~2023-11-15] VITALS: Ht 167.6 cm; Wt 97.2 kg
[2023-11-15 20:33] LABS: BASOPHILS ABSOLUTE AUTO 0.04 K/mm3 (0.00-0.23); BASOPHILS PERCENT AUTO 1 % (0-2); EOSINOPHILS ABSOLUTE AUTO 0.13 K/mm3 (0.00-0.68); EOSINOPHILS PERCENT AUTO 2 % (0-6); Hematocrit 27.2 % (37.0-53.0); Hemoglobin 8.3 g/dL (13.5-17.5); IMMATURE GRAN ABSOLUTE AUTO 0.03 K/mm3 (0.00-0.10); IMMATURE GRAN PERCENT AUTO 0 % (0-1); LYMPHOCYTES ABSOLUTE AUTO 1.74 K/mm3 (0.84-5.20); LYMPHOCYTES PERCENT AUTO 23 % (21-46); MONOCYTES ABSOLUTE AUTO 0.56 K/mm3 (0.16-1.47); MONOCYTES PERCENT AUTO 8 % (4-13); Mean Corpuscular HGB 31.7 pg (26.0-34.0); Mean Corpuscular HGB Conc 30.5 g/dL (31.5-36.5); Mean Corpuscular Volume 104 fL (80-100); Mean Platelet Volume 9.6 fL (9.1-12.4); NEUTROPHILS ABSOLUTE AUTO 4.99 K/mm3 (1.96-9.15); NEUTROPHILS PERCENT AUTO 67 % (41-73); Platelet Count 177 K/mm3 (150-400); RDW Coefficient Variation 16.9 % (11.7-14.2); RDW Standard Deviation 65.4 fL (35.1-46.3); Red Blood Cell Count 2.62 M/mm3 (4.30-5.90); White Blood Cell Count 7.49 K/mm3 (4.00-11.30)
[2023-11-15 20:53] LABS: Albumin, Blood 3.2 g/dL (3.4-5.0); Albumin/Globulin Ratio 0.7 (0.8-1.8); Bilirubin, Total 0.3 mg/dL (0.1-1.0); Calcium, Blood 9.4 mg/dL (8.5-10.1); Creatinine, Blood 1.65 mg/dL (0.60-1.20); Globulin, Blood 4.4 g/dL (2.2-4.0); Potassium, Blood 5.8 mmol/L (3.5-5.5); Total Protein, Blood 7.6 g/dL (6.4-8.2)
[2023-11-15] MEDS ORDERED: NS 1,000 ML IV SCH (21:40)
[2023-11-15 23:01] LABS: Source, Urine Clean Catch
[2023-11-15 23:05] LABS: Bilirubin, Urine Neg (Neg); Blood, Urine Neg (Neg); Glucose Qualitative, Urine Neg (Neg); Ketones, Urine Neg (Neg); Leukocyte Esterase, Urine Neg (Neg); Nitrite, Urine Neg (Neg); Protein, Urine Neg (Neg); Urobilinogen, Urine NORM (Normal)
[2023-11-15 23:22] LABS: Appearance, Urine Clear (Clear); Color, Urine Yellow (P-Yellow)
[2023-11-16 00:13] LABS: Bun/Creatinine Ratio 36.9 (12.0-20.0); Creatinine, Blood 1.57 mg/dL (0.60-1.20); Potassium, Blood 5.2 mmol/L (3.5-5.5)
[2023-11-16 00:58] VITALS: BP 98/60
== END 2023-11-16 01:02 | disposition home or self-care (01) ==
LOC: ER 20:02
PROVIDERS: Emergency Medicine
DX: E86.0 Dehydration (principal); R53.1 Weakness; I11.0 Hypertensive heart disease with heart failure; I50.9 Heart failure, unspecified; C34.90 Malignant neoplasm of unspecified part of unspecified bronchus or lung; I25.10 Atherosclerotic heart disease of native coronary artery without angina pectoris; I25.5 Ischemic cardiomyopathy; J44.9 Chronic obstructive pulmonary disease, unspecified; Z87.891 Personal history of nicotine dependence; Z88.5 Allergy status to narcotic agent; Z88.1 Allergy status to other antibiotic agents; Z88.8 Allergy status to other drugs, medicaments and biological substances; Z79.899 Other long term (current) drug therapy
CPT/HCPCS: 71045; 71260; 80048; 80053; 81003; 83690; 83880; 84484; 85025; 93005; 93010; 99285-25; J7030; Q9967

== ENCOUNTER 2024-04-17 09:39 | Inpatient (IN) | payer OTHER ==
[~2024-04-17] VITALS: Ht 190.5 cm; Wt 110.0 kg
[2024-04-17] VITALS (14 sets, daily range): BP systolic 53–158; BP diastolic 36–142
[~2024-04-17 09:39] MED LIST changes: +DOXY100 PO; +IPRATROPIUM BRO30 ML INH; +Norco 7.5-3251 EACH PO; +OMEP20ER PO; +PREDNISONE PO; +Prednisone10 MG PO
[2024-04-17] MEDS ORDERED: NS 1,000 ML IV SCH ×2 (09:55→11:20)
[2024-04-17 10:04] LABS: Hematocrit 29.6 % (37.0-53.0); Hemoglobin 9.3 g/dL (13.5-17.5); Mean Corpuscular HGB 31.4 pg (26.0-34.0); Mean Corpuscular HGB Conc 31.4 g/dL (31.5-36.5); Mean Corpuscular Volume 100 fL (80-100); Mean Platelet Volume 10.4 fL (9.1-12.4); NRBC ABSOLUTE 0.07 K/mm3 (0.00-0.02); NRBC Auto 0.6 /100 WBC (0.0-0.2); Platelet Count 203 K/mm3 (150-400); RDW Coefficient Variation 15.9 % (11.7-14.2); RDW Standard Deviation 58.2 fL (35.1-46.3); Red Blood Cell Count 2.96 M/mm3 (4.30-5.90); White Blood Cell Count 11.75 K/mm3 (4.00-11.30)
[2024-04-17 10:23] LABS: Albumin/Globulin Ratio 0.6 (0.8-1.8); Bilirubin, Total 0.3 mg/dL (0.1-1.0); Bun/Creatinine Ratio 24.2 (12.0-20.0); Calcium, Blood 8.5 mg/dL (8.5-10.1); Creatinine, Blood 4.21 mg/dL (0.60-1.20); Globulin, Blood 3.3 g/dL (2.2-4.0); Magnesium, Blood 2.1 mg/dL (1.6-2.4); Potassium, Blood 4.6 mmol/L (3.5-5.5); Total Protein, Blood 5.3 g/dL (6.4-8.2)
[2024-04-17] MEDS ORDERED: MetroNIDAZOLE 500MG/NS 100 ml 100 ML IV ONE (10:25)
[2024-04-17] MEDS ORDERED: LevoFLOXacin 750 MG/D5W 150ML 150 ML IV ONE (10:30)
[2024-04-17 10:56] LABS: BAND PERCENT MAN 9 % (0-8); BASOPHILS PERCENT MAN 0 % (0-2); EOSINOPHILS PERCENT MAN 0 % (0-6); LYMPHOCYTES PERCENT MAN 23 % (21-46); METAMYELOCYTE ABSOLUTE MAN 0.11 K/mm3 (0.00-0.00); METAMYELOCYTE PERCENT MAN 1 % (0-0); MONOCYTES ABSOLUTE MAN 1.29 K/mm3 (0.16-1.47); MONOCYTES PERCENT MAN 11 % (4-13); MYELOCYTE ABSOLUTE MAN 0.35 K/mm3 (0.00-0.00); MYELOCYTE PERCENT MAN 3 % (0-0); NEUTROPHILS ABSOLUTE MAN 7.28 K/mm3 (1.96-9.15); SEG NEUTROPHILS PERCENT MAN 53 % (41-73); TOTAL CELLS COUNTED 100
[2024-04-17 11:00] LABS: Influenza A, PCR NEGATIVE (NEGATIVE); Influenza B, PCR NEGATIVE (NEGATIVE); Resp Syncytial Virus, PCR NEGATIVE (NEGATIVE); SARS-Cov-2 (COVID-19) PCR, MMC NEGATIVE (NEGATIVE)
[2024-04-17 11:13] LABS: Source, Urine Clean Catch
[2024-04-17 11:22] LABS: Appearance, Urine Hazy (Clear); Bilirubin, Urine Neg (Neg); Blood, Urine Neg (Neg); Color, Urine Yellow (P-Yellow); Glucose Qualitative, Urine Neg (Neg); Ketones, Urine Neg (Neg); Leukocyte Esterase, Urine Neg (Neg); Nitrite, Urine Neg (Neg); Protein, Urine 1+ (Neg); Specific Gravity, Urine 1.025 (1.003-1.022); Urobilinogen, Urine NORM (Normal)
[2024-04-17 11:33] LABS: Amorphous Light (0-Heavy); Bacteria Rare /hpf; Hyaline Casts 0-2 /lpf (0-2); Red Blood Cells, Urine 0-2 /hpf (0-2); Squamous Epithelial Cells Rare /hpf (Few); White Blood Cells, Urine 0-2 /hpf (0-5)
[2024-04-17] MEDS ORDERED: Ketamine HCL 10 MG/ML 20MLVIAL IV ONE (11:40)
[2024-04-17] MEDS ORDERED: FentaNYL Citrate 50 MCG/ML 2 ML Injection IV PRN ×2 (12:50→13:25)
[2024-04-17] MEDS ORDERED: Naloxone HCl 0.4MG / ML 1ML Vial IV PRN (12:50)
[2024-04-17] MEDS ORDERED: FLU VACC TS2024-25(6MOS UP)/PF 45 MCG/0.5 ML SYRINGE IM SCH (12:50)
[2024-04-17] MEDS ORDERED: Lactated Ringer's 1,000 ML IV SCH (12:50)
[2024-04-17] MEDS ORDERED: Acetaminophen 325 MG TABLET PO PRN (12:50)
[2024-04-17] MEDS ORDERED: Ampicillin Sod/Sulbactam Sod 1.5 GM in NS 100 ML IV SCH (13:30)
[2024-04-17] MEDS ORDERED: HYDROmorphone HCl/Pf 1MG SYR IV PRN (15:35)
[2024-04-17] MEDS ORDERED: Heparin Sodium 5000 Units/ML 1ML MDV SC SCH (16:00)
--- NOTE | 2024-04-17 17:06 | NUR ---
ADMISSION/TRANSFER PT ARRIVED TO PCU 8 AT APPROX 1430 VIA GURNEY. PT ALERT ON ARRIVAL, ABLE TO TELL THIS RN NAME AND . BILATERAL TREMORS NOTED. PT ABLE TO SQUEEZE THIS RN HANDS, SMILE, AND STICK OUT TONGUE. PUPILS EQUAL AND REACTIVE. BP STABLE. HR ST 120'S. AFEBRILE. SPO2 >96% ON 6L NC. RESPIRATIONS LABORED, LUNG SOUNDS DIM THROUGHOUT. RESP 24-26. ABD SEVERLY DISTENDED, PAINFUL TO TOUCH, BOWEL SOUNDS HYPOACTIVE. +2 EDEMA NOTED IN BLE. LR GTT @ 150ML/HR. FAIMLY AT BEDSIDE DURING ASSESSMENT, TOLD THIS RN PT ALERT AND ORIENTED X4 AT BASELINE, IND AT HOME. CONTINUING ADMISSION ASSESSMENT PT BECOMING INCREASINGLY RESTLESS. BILATERAL SWELLING NOTED IN BASE OF NECK, ABOVE CLAVICLE. WARP KNIT OPERATOR AND MD TO BEDSIDE. STAT CHEST AND ABDOMINAL XRAY ORDERED. PT MEDICATED W/ 1MG DILAUDID FOR AIR HUNGER. MCMANUS CATHETER PLACED, APPROX 300ML OF URINARY OUTPUT. ORDERS RECEIVED FOR ICU TRANSFER, PULMONOLOGY CONSULTED. BEDSIDE REPORT GIVEN TO ROSALIND ESPARZA.
[2024-04-17] MEDS ORDERED: NS 500 ML IV SCH (17:20)
[2024-04-17] MEDS ORDERED: NS 500 ML IV ONE (17:22)
[2024-04-17] MEDS ORDERED: MethylPREDNISolone Sod Succ 40 MG VIAL IV SCH (18:00)
[2024-04-17] MEDS ORDERED: MetroNIDAZOLE 500MG/NS 100 ml 100 ML IV SCH (18:00)
--- NOTE | 2024-04-17 18:47 | NUR ---
ASSUMPTION OF CARE PT ARRIVED TO ICU ROOM 11 FROM PCU, SLIDER SHEET TRANSFER TO ICU BED. PT EXTREMELY TREMULOUS AND DIAPHORETIC. OPENS EYES SPONTANEOUSLY, OCCASIONALLY FOLLOWS COMMANDS, STATES NAME BUT NOTHING ELSE. DUE TO PT BEING SO TREMULOUS, BP INCONSISTENT, THIS RN ATTEMPTED MANUAL BP VIA PALP & DOPPLER BUT NOT ABLE TO OBTAIN DUE TO THE TREMBLING. CURRENTLY TAKING ON L CALF. MCMANUS CATH PATENT, DRAINING LALITO URINE. NO BM, WILL SEND STOOL SAMPLE WITH BM. MANY FAMILY MEMBERS AT BEDSIDE, THIS NURSE INFORMED OF VISITING POLICY.
[2024-04-17 19:40] LABS: Hematocrit 30.9 % (37.0-53.0); Hemoglobin 9.3 g/dL (13.5-17.5); Mean Corpuscular HGB 31.3 pg (26.0-34.0); Mean Corpuscular HGB Conc 30.1 g/dL (31.5-36.5); Mean Corpuscular Volume 104 fL (80-100); Mean Platelet Volume 10.3 fL (9.1-12.4); NRBC ABSOLUTE 0.07 K/mm3 (0.00-0.02); NRBC Auto 0.6 /100 WBC (0.0-0.2); Platelet Count 185 K/mm3 (150-400); RDW Coefficient Variation 16.1 % (11.7-14.2); RDW Standard Deviation 62.1 fL (35.1-46.3); Red Blood Cell Count 2.97 M/mm3 (4.30-5.90); White Blood Cell Count 11.71 K/mm3 (4.00-11.30)
[2024-04-17 19:48] LABS: Albumin/Globulin Ratio 0.6 (0.8-1.8); Bilirubin, Total 0.3 mg/dL (0.1-1.0); Bun/Creatinine Ratio 24.5 (12.0-20.0); Calcium, Blood 8.3 mg/dL (8.5-10.1); Creatinine, Blood 4.21 mg/dL (0.60-1.20); Globulin, Blood 3.1 g/dL (2.2-4.0); Potassium, Blood 4.9 mmol/L (3.5-5.5); Total Protein, Blood 5.1 g/dL (6.4-8.2)
[2024-04-17 20:15] LABS: BAND PERCENT MAN 30 % (0-8); BASOPHILS PERCENT MAN 0 % (0-2); EOSINOPHILS PERCENT MAN 0 % (0-6); LYMPHOCYTES ABSOLUTE MAN 0.58 K/mm3 (0.84-5.20); LYMPHOCYTES PERCENT MAN 5 % (21-46); METAMYELOCYTE ABSOLUTE MAN 0.11 K/mm3 (0.00-0.00); METAMYELOCYTE PERCENT MAN 1 % (0-0); MONOCYTES ABSOLUTE MAN 0.81 K/mm3 (0.16-1.47); MONOCYTES PERCENT MAN 7 % (4-13); MYELOCYTE ABSOLUTE MAN 0.11 K/mm3 (0.00-0.00); MYELOCYTE PERCENT MAN 1 % (0-0); NEUTROPHILS ABSOLUTE MAN 10.07 K/mm3 (1.96-9.15); SEG NEUTROPHILS PERCENT MAN 56 % (41-73); TOTAL CELLS COUNTED 100
[2024-04-17] MEDS ORDERED: Lactobacil 2-S.Thermo-Bifido 1 1 Cap PO SCH (21:00)
[2024-04-17 21:48] LABS: Source, Urine Foley catheter
--- NOTE | 2024-04-17 21:51 | NUR ---
ASSUMED CARE CARE WAS ASSUMED OF PT AT APPROX 1900. PT ALERT AND TRACKING FAMILY MEMBERS AROUND ROOM. PT WILL MAKE EYE CONTACT WHEN YOU SAY HIS NAME BUT UNABLE TO CONSISTENTLY FORM SENTENCES. HE IS UNABLE TO SAY HIS NAME OR , AND JUST MUMBLE WHEN YOU ASK HIM MOST QUESTIONS. PT EXTREMELY TREMULOUS AT REST AND WITH ANY PASSIVE MOVEMENT. PT DOES SAY "YES" WHEN ASKED IF HE IS COLD. PT ABLE TO FOLLOW SOME COMMANDS BUT INCONSISTENTLY. CPOT 0-5, MEDICATING PER EMAR. PT ON 2 L N/C, O2 SATS > 90%. CARDIAC MONITORING REFLECTS SINUS TACH, HR 100s-110s. BLOOD PRESSURE DIFFICULT TO CONSISTENTLY MEASURE D/T TREMORS, SBP 90s-100s WHEN ABLE TO MEASURE. PIV x2. LR INFUSING @ 75 mL/HR. MCMANUS PATENT AND DRAINING TO GRAVITY.
[2024-04-17 21:53] LABS: Appearance, Urine Clear (Clear); Bilirubin, Urine Neg (Neg); Blood, Urine 4+ (Neg); Color, Urine Yellow (P-Yellow); Glucose Qualitative, Urine Neg (Neg); Ketones, Urine Neg (Neg); Leukocyte Esterase, Urine 1+ (Neg); Nitrite, Urine Neg (Neg); Protein, Urine 2+ (Neg); Specific Gravity, Urine 1.025 (1.003-1.022); Urobilinogen, Urine NORM (Normal)
[2024-04-17 22:23] LABS: Amorphous Light (0-Heavy); Bacteria Mod /hpf; Squamous Epithelial Cells Few /hpf (Few); White Blood Cells, Urine 0-2 /hpf (0-5)
--- NOTE | 2024-04-17 22:30 | NUR ---
PT UPDATE PT'S BLOOD PRESSURE HYPOTENSIVE. NOTIFIED TRUER PINION AND WHEEL. LACTIC ACID AND CMP ORDERED, FENTANYL AND LR DCd. AT BEDSIDE EDUCATED BY THIS RN ABOUT PT'S BLOOD PRESSURE AND OVERALL STATUS. THIS RN SPOKE WITH PT'S REGARDING GOALS OF CARE AND PT'S REITERATING WANTING TO KEEP PATIENT COMFORTABLE BUT WANTING TO CONSULT GRANDDAUGHTER AND DAUGHTER BEFORE MAKING A DECISION. TRUER PINION AND WHEEL TO COME TO BEDSIDE TO CONSULT FAMILY AND OVERALL GOALS OF CARE.
[2024-04-17] MEDS ORDERED: Albumin (Human) 12.5gm/250ml 250 ML IV ONE (23:15)
[2024-04-17 23:25] LABS: Albumin, Blood 1.8 g/dL (3.4-5.0); Albumin/Globulin Ratio 0.5 (0.8-1.8); Bilirubin, Total 0.3 mg/dL (0.1-1.0); Bun/Creatinine Ratio 24.4 (12.0-20.0); Calcium, Blood 8.5 mg/dL (8.5-10.1); Creatinine, Blood 4.27 mg/dL (0.60-1.20); Globulin, Blood 3.3 g/dL (2.2-4.0); Potassium, Blood 5.6 mmol/L (3.5-5.5); Total Protein, Blood 5.1 g/dL (6.4-8.2)
--- NOTE | 2024-04-17 23:53 | NUR ---
PT UPDATE CHEMICAL LABORATORY CHIEF DISCUSSED GOALS OF CARE WITH PT'S AND FAMILY. DECISION MADE BY AND FAMILY TO NOT ESCALATE CARE BEYOND IV ABX, FLUIDS, AND PAIN MEDICATIONS ALREADY ORDERED. DECISION MADE TO NOT INSERT CENTRAL LINE OR START VASOPRESSORS WITH PT'S EXISTING HYPOTENSION.
[2024-04-18] VITALS (30 sets, daily range): BP systolic 67–160; BP diastolic 47–109
[2024-04-18 02:23] LABS: Albumin/Globulin Ratio 0.6 (0.8-1.8); Bilirubin, Total 0.3 mg/dL (0.1-1.0); Bun/Creatinine Ratio 24.6 (12.0-20.0); Calcium, Blood 8.6 mg/dL (8.5-10.1); Creatinine, Blood 4.27 mg/dL (0.60-1.20); Globulin, Blood 3.1 g/dL (2.2-4.0); Potassium, Blood 5.3 mmol/L (3.5-5.5); Total Protein, Blood 5.1 g/dL (6.4-8.2)
[2024-04-18 02:32] LABS: Hematocrit 28.5 % (37.0-53.0); Hemoglobin 8.7 g/dL (13.5-17.5); Mean Corpuscular HGB 31.9 pg (26.0-34.0); Mean Corpuscular HGB Conc 30.5 g/dL (31.5-36.5); Mean Corpuscular Volume 104 fL (80-100); Mean Platelet Volume 10.4 fL (9.1-12.4); NRBC ABSOLUTE 0.08 K/mm3 (0.00-0.02); NRBC Auto 0.7 /100 WBC (0.0-0.2); Platelet Count 179 K/mm3 (150-400); RDW Coefficient Variation 16.2 % (11.7-14.2); Red Blood Cell Count 2.73 M/mm3 (4.30-5.90); White Blood Cell Count 11.91 K/mm3 (4.00-11.30)
[2024-04-18 03:18] LABS: BAND PERCENT MAN 23 % (0-8); BASOPHILS PERCENT MAN 0 % (0-2); EOSINOPHILS PERCENT MAN 0 % (0-6); LYMPHOCYTES ABSOLUTE MAN 0.95 K/mm3 (0.84-5.20); LYMPHOCYTES PERCENT MAN 8 % (21-46); MONOCYTES ABSOLUTE MAN 0.47 K/mm3 (0.16-1.47); MONOCYTES PERCENT MAN 4 % (4-13); MYELOCYTE ABSOLUTE MAN 0.23 K/mm3 (0.00-0.00); MYELOCYTE PERCENT MAN 2 % (0-0); NEUTROPHILS ABSOLUTE MAN 10.24 K/mm3 (1.96-9.15); SEG NEUTROPHILS PERCENT MAN 63 % (41-73); TOTAL CELLS COUNTED 100
--- NOTE | 2024-04-18 05:31 | NUR ---
SHIFT SUMMARY NO CHANGES WITH PT'S MENTATION THIS SHIFT, PT STILL ONLY ABLE TO FORM FEW WORDS, PT INCONSISTENTLY RESPONDS "Hi", "yes", OR "no" BUT CONTINUES TO MUMBLE WHEN ATTEMPTING TO RESPOND. PT WILL MAKE EYE CONTACT WHEN HIS NAME IS SAID AND WILL OCCASIONALLY TRACK RN AROUND ROOM BUT HAS KEPT HIS GAZE MOSTLY UPWARD. PT'S TREMORS CONTINUE. PT REMAINS ON 2 L N/C, O2 SATS > 90%. SINUS TACH NOTED ON CARDIAC MONITORING, HR 100s AT THIS TIME. PT'S BP BECOMING INCREASINGLY MORE HYPOTENSIVE, FIELD CROP FARMWORKER AWARE, SEE NURSE NOTE. PIV x2 SL. MEDICATING PT PER EMAR FOR PAIN THIS SHIFT. PT'S FAMILY AT BEDSIDE T/O SHIFT. MCMANUS PATENT AND DRAINING TO GRAVITY. NO BM THIS SHIFT.
[2024-04-18] MEDS ORDERED: Sodium Bicarb 8.4% Inj 100 MEQ in Dextrose 5% 1,000 ML IV SCH (09:00)
[2024-04-18] MEDS ORDERED: HYDROmorphone HCl/Pf 1MG SYR IV PRN (09:15)
--- NOTE | 2024-04-18 09:15 | NUR ---
SHIFT ASSESSMENT ASSUMED CARE OF PT @ 0700, BEDSIDE REPORT RECEIVED FROM ADIA ESPARZA. PT IN BED, OPENING EYES SPONTANEOUSLY & TRACKING FAMILY/ NURSE IN ROOM. OCCASIONALLY RESPONDS TO SIMPLE QUESTIONS WITH 1-2 WORD RESPONSE, RANDOMLY STATES "I LOVE YOU" TO FAMILY IN THE ROOM. NOT FOLLOWING COMMANDS, WITHDRAWS TO NOXIOUS STIMULI. CONTINOUSLY SHAKING, APPEARS TO BE RELATED TO PAIN, SHAKING SLOWS AFTER PRN DILAUDID. OBTAINING AN ACCURATE BP REMAINS DIFFICULT DUE TO SHAKES. MCMANUS CATH DRAINING SMALL AMNT OF LALITO URINE, NO BM. FAMILY AT BEDSIDE, CONSIDERING TRANSTION TO COMFORT CARE.
[2024-04-18 14:01] LABS: Albumin, Blood 2.1 g/dL (3.4-5.0); Albumin/Globulin Ratio 0.7 (0.8-1.8); Bilirubin, Total 0.4 mg/dL (0.1-1.0); Calcium, Blood 8.8 mg/dL (8.5-10.1); Creatinine, Blood 4.47 mg/dL (0.60-1.20); Globulin, Blood 3.2 g/dL (2.2-4.0); Potassium, Blood 5.1 mmol/L (3.5-5.5); Total Protein, Blood 5.3 g/dL (6.4-8.2)
[2024-04-18] MEDS ORDERED: Atropine Sulfate 1% Opth Soln 2ML BTL SL PRN (14:55)
[2024-04-18] MEDS ORDERED: Acetaminophen 650 MG Supp PR PRN (14:55)
[2024-04-18] MEDS ORDERED: Scopolamine Hydrobromide Patch TOP PRN (14:55)
[2024-04-18] MEDS ORDERED: FentaNYL 25 MCG Patch TOP SCH (14:55)
[2024-04-18] MEDS ORDERED: Promethazine HCl 25 MG Supp PR PRN (14:55)
[2024-04-18] MEDS ORDERED: LORazepam 1 MG Tab PO PRN (14:55)
--- NOTE | 2024-04-18 16:12 | NUR ---
STATUS CHANGE TO COMFORT CARE, ORDERS RCV'D FROM . ORDERS PLACED ACCORDINGLY. CONTINUE ABX UNTIL D/C HOME ON HOSPICE START FENTANYL PATCH CONTINUE DILAUDID IV UNTIL D/C HOME ORAL SOLUTION IS NOT AVAILABLE IN HOUSE MORPHINE ALLERGY, WITHIN SECONDS OF ADMINISTRATION, SEVERE PRJECTILE VOMITING, HIVES. CODEINE ALLERGY, NAUSEA. REVIEWED FULL TREATMENT VS COMFORT MEASURES WITH PT'S FAMILY, INCLUDING SPOUSE AND CHILDREN. WHEN TALKED TO PT AND ASKED IF HE WANTED TO GO HOME HE BLINKED HIS EYES TWICE FOR YES. MADE DECESION TO TRANSITION TO COMFORT CARE. PC PROVIDED BOOKLET, CONSIDERING COMFORT CARE. PC TO REMAIN AVAILABLE NEEDED.
[2024-04-18] MEDS ORDERED: LORazepam 2 MG/ML 1ML Injection IV PRN ×2 (17:05→19:35)
--- NOTE | 2024-04-18 17:28 | NUR ---
ASSUMPTION OF CARE NOTE: PATIENT ARRIVES TO ROOM VIA BED FROM ICU RM 11. PATIENT TRANSFERRED TO BED c 4 MAX ASSIST USING SLIDER SHEET. ASSUMED CARE OF PATIENT. PATIENT ON COMFORT CARE MEASURE PER FAMILY'S REQUEST. PATIENT ALERT, MADE AN EYE CONTACT BUT NOT ABLE TO RESPOND ANY WORDS DURING THIS ENCOUNTER, MOANS AND MUMBLES SOUNDS, TREMOLOUS. PATIENT ON 2L O2 AT BASELINE. PATIENT HAS MCMANUS, PATENT DRAINING LALITO COLOR URINE TO GRAVITY. PATIENT BOTH SIDE, BILAT ARMS AND BLE'S FLOATED ON PILLOWS AND MEDICATED FOR COMFORT PER EMAR. PATIENT FAMILY AT BEDSIDE AT THIS TIME. CALL LIGHT IN REACH.
--- NOTE | 2024-04-19 07:57 | NUR ---
TACO MAKER SUMMARY COMFORT CARE. FAMILY PRESENT AT BEDSIDE. PATIENTS DAUGHTER AND GRANDDAUGHTER ARE NURSES HERE AND ARE HELPING DIRECT HIS CARE. PT GETS VERY TREMULOUS AND GRIMACES/GROANS WHEN HIS PAIN MEDS AND ATIVAN WEAR OFF. FAMILY WOULD LIKE HIM TO BE COMFORTABLE AND CALL THIS RN WHEN HE STARTS SHAKING AND NEEDS MORE MEDICINE. PTS COMFORT IS WELL CONTROLLED WITH IV DILAUDID AND ATIVAN UNTIL THEY WEAR OFF. ORAL CARE DONE WITH SUCTION AND CHAPSTICK. PT CARI OUT AND APPEARS TO DISLIKE BEING REPOSITIONED. MCMANUS CATHETER DRINING TO GRAVITY.
--- NOTE | 2024-04-19 08:14 | NUR ---
COMFORT CARE SX MANAGEMENT SUPPORTIVE VISIT WITH PT'S , SON AND G-DTR. IS EXPERIENCING A GREAT DEAL OF ANTICIPATORY GREIF. DRUG SAFETY DATA MANAGEMENT SPECIALIST NOTIFIED. GREAT FAMILY SUPPORT. PT'S TREMORS ARE BEING MANAGED WITH ATIVAN. PAIN MANAGED WITH DILAUDID AND FENTANYL PATCH. SECREATIONS NEED ADDITIONAL INTERVENTIONS. PRIMARY RN NOTIFIED OF PT NEED FOR ATROPINE DROP ADMINISTRATION. SCOPOLAMINE PATCH IN PLACE ON RIGHT SIDE. PT WAS ALERT YESTERDAY. THIS MORNING HE IS OBTUNDED AND RESPONSIVE ONLY TO PAIN. PPP X4, IRREG. CAP REFILL <5 SEC. PEDAL PULSES WEAK. NO MOTTLING NOTED AT THIS TIME. DISCOLORATION TO BILAT FEET IS BASELINE. ORDERS RCV'D FROM TO D/C ABX AND STEROIDS. PC TO REMAIN AVAILABLE NEEDED.
--- NOTE | 2024-04-19 16:14 | NUR ---
Spiritual care visit conducted. Patient is lying in bed and minimally responsive. Many family members and their local first coat operator are present. I conduct a life review, learn of the family unit dynamics and personalities and the family and patient wishes about this time of being on comfort measures. Patient's spouse shows signs of short term memory loss and confusion which of course maybe situational given the 50 some years of their marriage. I provided therapeutic listening, prayer, anticipatory grief support and levity. Family responded well and stated that the spiritual care visit was meaningful and welcome anytime.
--- NOTE | 2024-04-19 16:26 | NUR ---
PATIENT NONVERBAL, DOES BECOME TREMOROUS AND APPEARS PAINFUL WITH REPOSITIONING. FAMILY HAS ASKED THAT WE NO LONGER REPOSITION. PATIENT TOLERATING ORAL CARE. DILAUDID AND ATIVAN GIVEN TO TREAT PAIN/ANXIETY. ATROPINE DROPS AND SCOPALAMINE PATCH IN PLACE TO HELP REDUCE SERCRETION. FAMILY AT BEDSIDE THROUGHOUT THE DAY AND ARE VERY LOVING AND ATTENTIVE. FAMILY DOES NOT HAVE PLANS AT THIS TIME TO TAKE PATIENT HOME DUE TO SEVERE PAIN WITH MOVEMENT. REMAINS ON 2LO2 FOR COMFORT.
--- NOTE | 2024-04-20 07:40 | NUR ---
COMPENSATION ANALYST SUMMARY FAMILY AT THE BEDSIDE. 2 FAMILY MEMBERS ARE NURSES AND WOULD LIKE PT TO BE WELL MEDICATED BECAUSE THEY KNOW THAT IS WHAT MARIA L WANTS. THEY WOULD LIKE US TO GIVE THE IV DILAUDID EVERY 1-2 HOURS AND THE IV LORAZEPAM EVERY 2 HOURS TO KEEP JULIÁN RESPIRATORY RATE AT A NORMAL RATE. FAMILY REFUSING TO HAVE PT REPOSITIONED BECAUSE IT MAKES HIM VERY PAINFUL. ORAL CARE DONE. PT ALSO SEEMS TO LIKE THE CHAPSTICK. USING ATROPINE DROPS AND SCOP PATCH FOR SECRETIONS.
--- NOTE | 2024-04-20 16:25 | NUR ---
Spiritual care visit conducted. Patient is resting and the room is full of family members. I provided levity and encouragement. [place] voices [facility] [place].
--- NOTE | 2024-04-20 18:25 | NUR ---
SHIFT SUMMARY PATIENT RESPONDING TO PAINFUL STIMULI, NONVERBAL. CONTINUES WITH COMFORT CARE MEASURES ONLY. FAMILY AT BEDSIDE ALL SHIFT TODAY, COMFORT CART REFILLED. PATIENT MEDICATED WITH DILAUDID, ATIVAN, AND ATROPINE PER SEP. PATIENT APPEARS TO BE COMFORTABLE WITHOUT ANY SIGNS OF DISTRESS. RESPIRATORY RATE IRREGULAR WITH APNEA. 2LPM SUPPLEMENTAL OXYGEN VIA NASAL CANNULA AT BASELINE, CONTINUED FOR COMFORT. NO OTHER CONCERNS AT THIS TIME.
[2024-04-20] MEDS ORDERED: LOMOTIL 2.5-0.1 EACH PO (19:07)
[2024-04-20] MEDS ORDERED: HYOSCYAMINE0.125 MG SL (19:08)
--- NOTE | 2024-04-21 19:19 | NUR ---
SHIFT SUMMARY PATIENT NOT REPSONDING TO VERBAL STIMULI, NONVERBAL AT THIS TIME. [address]A IN PL[address], CHRONIC USE AT HOME. PRN DILAUDID GIVEN HOURLY THIS SHIFT, PRN ATIVAN GIVEN Q 2HOURS, FENTANYL PATCH REPLACED THIS EVENING. FAMILY CONTINUES TO BE AT BEDSIDE, PLEASANT AND COOPERATIVE WITH CARE. FAMILY REFUSING REPOSITIONING OF PATIENT DUE TO FEAR OF INCREASED PAIN. FAMILY PLANS TO HAVE PATIENT STAY AT [facility], IS IMMINENT, AND PATIENT WOULD NOT TOLERATE TRANSPORT. PIV DRESSING REPLACED AND PATIENT GIVEN VIGOROUS BEDBATH THIS EVENING IN ORDER TO RELEASE LACTIC ACID. NO OTHER CONCERNS AT THIS TIME.
--- NOTE | 2024-04-21 21:57 | NUR ---
PATIENT PASSED 21:07. MULTIPLE FAMILY MEMBERS PRESENT. OPTICAL COATING TECHNICIAN STACEY NOTIFIED HOSPITALIST IMANI FARR.
== END 2024-04-21 20:17 | DRG 871 ==
LOC: ER 09:39 → MEDS 12:46 → PCU 12:46 → ICUE 12:46 → PCU 14:19 → ICUE 17:11 → MEDS 04-18 16:30
PROVIDERS: Student in an Organized Health Care Education/Training Program; ADMIT Internal Medicine
PROC: 0T9B70Z Drainage of Bladder with Drainage Device, Via Natural or Artificial Opening (ICD-10-PCS; principal; 2024-04-17)
PROC: 3E03329 Introduction of Other Anti-infective into Peripheral Vein, Percutaneous Approach (ICD-10-PCS; 2024-04-17)
PROC: 30233J1 Transfusion of Nonautologous Serum Albumin into Peripheral Vein, Percutaneous Approach (ICD-10-PCS; 2024-04-17)
DX: A41.9 Sepsis, unspecified organism (principal); G93.41 Metabolic encephalopathy; J96.21 Acute and chronic respiratory failure with hypoxia; I50.22 Chronic systolic (congestive) heart failure; N17.9 Acute kidney failure, unspecified; C34.2 Malignant neoplasm of middle lobe, bronchus or lung; N18.4 Chronic kidney disease, stage 4 (severe); E87.21 Acute metabolic acidosis; I13.0 Hypertensive heart and chronic kidney disease with heart failure and stage 1 through stage 4 chronic kidney disease, or unspecified chronic kidney disease; C91.41 Hairy cell leukemia, in remission; Z51.5 Encounter for palliative care; Z66 Do not resuscitate; I95.9 Hypotension, unspecified; J44.9 Chronic obstructive pulmonary disease, unspecified; R65.20 Severe sepsis without septic shock; K52.9 Noninfective gastroenteritis and colitis, unspecified; E86.0 Dehydration; E66.9 Obesity, unspecified; M47.812 Spondylosis without myelopathy or radiculopathy, cervical region; M47.816 Spondylosis without myelopathy or radiculopathy, lumbar region; M54.9 Dorsalgia, unspecified; J98.2 Interstitial emphysema; G89.29 Other chronic pain; E86.1 Hypovolemia; I25.10 Atherosclerotic heart disease of native coronary artery without angina pectoris; Z95.5 Presence of coronary angioplasty implant and graft; Z86.718 Personal history of other venous thrombosis and embolism; Z79.01 Long term (current) use of anticoagulants; Z88.8 Allergy status to other drugs, medicaments and biological substances; Z88.1 Allergy status to other antibiotic agents; Z88.5 Allergy status to narcotic agent; Z79.899 Other long term (current) drug therapy; Z79.891 Long term (current) use of opiate analgesic; Z86.711 Personal history of pulmonary embolism; I25.2 Old myocardial infarction; Z85.46 Personal history of malignant neoplasm of prostate; Z98.890 Other specified postprocedural states; Z96.653 Presence of artificial knee joint, bilateral; Z98.41 Cataract extraction status, right eye; Z68.28 Body mass index [BMI] 28.0-28.9, adult; Z92.21 Personal history of antineoplastic chemotherapy; Z92.3 Personal history of irradiation; Z90.79 Acquired absence of other genital organ(s); Z87.891 Personal history of nicotine dependence
CPT/HCPCS: 0241U; 36415; 51701; 71045; 74018; 74176; 76770; 80053; 81001; 82947; 83605; 83690; 83735; 83880; 84484; 85025; 87040; 93005; 93010; 96361; 96365; 96367; 96375; 99285-25; A9270; J0295; J1170; J1644; J1956; J2060; J2919; J3010; J7030; J7040; J7070; J7120; P9045